=== PATIENT | male | born 1960 | race Caucasian/White ===

== ENCOUNTER → 2020-12-11 | Outpatient (CLI) | payer MEDICARE ==
--- NOTE | 2020-12-11 08:56 | RAD ---
EXAM: Abdomen sonogram. HISTORY: Nausea and pain. TECHNIQUE: Sonographic imaging of the abdomen was performed. COMPARISON: None. FINDINGS: The liver is normal in size. No focal hepatic lesion is seen. The gallbladder is unremarkab le. The common bile duct is normal in caliber. The right kidney is normal in size. There is no hydron ephrosis or solid or cystic renal lesion. There is echogenic pancreas. No focal pancreatic lesion is seen. The inferior vena cava is obscured due to bowel gas. IMPRESSION: 1. Echogenic pancreas. No focal pancreatic lesion is seen. 2. Partially obscured midline structures due to bowel gas. Electronically signed by: Lynda Marie MD (12/11/2020 8:53 AM) [id number]
== END ==
LOC: US 07:47
PROVIDERS: ATTEND Internal Medicine
DX: R11.0 Nausea (principal)
CPT/HCPCS: 76705